=== PATIENT | female | born 1940 ===

== ENCOUNTER 2019-04-27 21:55 | Observation (INO) | payer MEDICARE, BC ==
[~2019-04-27 21:55] MED LIST: Iopamidol-370 76% 500 ML 1 ML ONE
[2019-04-27 22:20] LABS: #Eosinphils 0.2 thou/uL (0.0-0.7); #Lymphocytes 0.9 thou/uL (1.20-3.40); #Monocytes 0.7 thou/uL (0.11-0.59); #Neutrophils 9.2 thou/uL (1.40-6.50); %Basophils 0.3 % (0.0-1.0); %Eosinophils 2.2 % (0.0-10.0); %Lymphocytes 8.1 % (21.0-51.0); %Monocytes 6.4 % (0.0-10.0); %Neutrophils 83.1 % (42.0-75.0); Hemoglobin 11.7 g/dL (12.0-16.0); Mean Corpuscular HGB CONC 34.1 g/dL (32.0-36.0); Mean Corpuscular Hemoglobin 33.7 pg (27.0-31.0); Mean Corpuscular Volume 98.6 fL (78.0-98.0); Mean Platelet Volume 8.3 fL (7.4-10.4); Platelet Count 188 thou/uL (130-400); RBC Distribution Width 10.8 % (11.5-14.5); Red Blood Cell (RBC) Count 3.47 mill/uL (4.20-5.40)
[2019-04-27 22:30] LABS: INR-International Normal Ratio 1.1; Prothrombin Time 13.8 SEC (12.0-14.7)
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
[2019-04-27 22:49] LABS: ALT (SGPT) 24 U/L (8-55); AST (SGOT) 37 U/L (5-34); Albumin 3.5 g/dL (3.4-4.8); Alkaline Phosphatase 84 U/L (40-110); Anion Gap 10 mmol/L (10-20); BUN (Urea Nitrogen) 14 mg/dL (9.8-20.1); Bilirubin, Total 0.3 mg/dL (0.2-1.2); Calc. Creatinine Clearance 0 mL/min (70-130); Calcium 8.3 mg/dL (7.8-10.44); Carbon Dioxide 24 mmol/L (23-31); Chloride 104 mmol/L (98-107); Estimated GFR-MDRD 62; Globulin 2.6 g/dL (2.4-3.5); Glucose 152 mg/dL (83-110); Potassium 3.3 mmol/L (3.5-5.1); Protein, Total 6.1 g/dL (6.0-8.3); Sodium 135 mmol/L (136-145)
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
[2019-04-27] MEDS ORDERED: Lidocaine 1% w/Epinephrine 1:100K 20 ML VIAL ONE (23:36)
[2019-04-28 01:45] LABS: Magnesium 1.8 mg/dL (1.6-2.6)
[2019-04-28 01:48] LABS: Phosphorus 1.4 mg/dL (2.3-4.7)
[2019-04-28] MEDS ORDERED: Dextrose 50% Abboject 50 ML SYRINGE SLOW IVP PRN (01:52)
[2019-04-28] MEDS ORDERED: hydrALAZINE 20 MG/ML VIAL SLOW IVP PRN (01:52)
[2019-04-28] MEDS ORDERED: Dextrose 5% in Water 1,000 ML IV PRN (01:52)
[2019-04-28] MEDS ORDERED: Morphine 2 MG/ML SYRINGE SLOW IVP PRN (01:52)
[2019-04-28] MEDS ORDERED: Ondansetron PF 4 MG/2 ML Vial IVP PRN (01:52)
[2019-04-28] MEDS ORDERED: traMADol HCl 50 MG TAB PO PRN ×2 (01:54)
[2019-04-28] MEDS ORDERED: Magnesium 2 GM/50 ML 2 GM in Premix Bag 1 BAG IVPB SCH (02:00)
[2019-04-28] MEDS ORDERED: Acetaminophen 500 MG TAB ONE (02:05)
[2019-04-28] MEDS ORDERED: Potassium Phosphate 30 MMOL in Sodium Chloride 0.9% 250 ML 250 ML IVPB SCH (02:30)
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
[2019-04-28 03:11] LABS: Troponin I Less than 0.010 ng/mL (< 0.028)
[2019-04-28 04:52] VITALS: BMI 28.5
[2019-04-28] MEDS ORDERED: Acetaminophen 1,000 MG in Premix Bag 1 BAG IVPB SCH (06:00)
[2019-04-28 06:10] LABS: Troponin I Less than 0.010 ng/mL (< 0.028)
[2019-04-28] MEDS: Ibuprofen 600 MG TAB PO SCH ×2 (06:17→13:55)
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
[2019-04-28 08:15] LABS: #Eosinphils 0.1 thou/uL (0.0-0.7); #Lymphocytes 0.9 thou/uL (1.20-3.40); #Monocytes 0.8 thou/uL (0.11-0.59); #Neutrophils 8.3 thou/uL (1.40-6.50); %Basophils 0.3 % (0.0-1.0); %Eosinophils 1.5 % (0.0-10.0); %Lymphocytes 9.2 % (21.0-51.0); %Monocytes 7.4 % (0.0-10.0); %Neutrophils 81.7 % (42.0-75.0); Hemoglobin 9.8 g/dL (12.0-16.0); Mean Corpuscular HGB CONC 33.7 g/dL (32.0-36.0); Mean Corpuscular Hemoglobin 33.8 pg (27.0-31.0); Mean Platelet Volume 8.4 fL (7.4-10.4); Platelet Count 185 thou/uL (130-400); RBC Distribution Width 10.8 % (11.5-14.5); White Blood Cell (WBC) Count 10.2 thou/uL (4.8-10.8)
[2019-04-28 08:37] LABS: Anion Gap 12 mmol/L (10-20); BUN (Urea Nitrogen) 14 mg/dL (9.8-20.1); Calc. Creatinine Clearance 58 mL/min (70-130); Calcium 7.9 mg/dL (7.8-10.44); Carbon Dioxide 21 mmol/L (23-31); Chloride 106 mmol/L (98-107); Estimated GFR-MDRD 60; Glucose 113 mg/dL (83-110); Magnesium 2.4 mg/dL (1.6-2.6); Phosphorus 5.2 mg/dL (2.3-4.7); Potassium 4.2 mmol/L (3.5-5.1); Sodium 135 mmol/L (136-145)
[2019-04-28] MEDS ORDERED: Senokot S 8.6-50 MG TAB PO SCH (09:00)
[2019-04-28] MEDS ORDERED: Famotidine/PF 20 mg/2ml Vial SLOW IVP SCH (09:00)
[2019-04-28] MEDS ORDERED: Polyethylene Glycol 3350 17 GM Packet PO SCH (09:00)
[2019-04-28] MEDS ORDERED: Acetaminophen 500 MG TAB PO SCH (12:00)
[2019-04-28 12:17] VITALS: BP 147/67; TEMP 97.8
--- NOTE | 2019-04-28 13:34 | PDOC.EVN ---
Event Note - Event Note Event Note: Patient seen and examined. No chest pain. Cardiac enzymes negative. No arythmias on telemetry. 12 lead EKG only shows chronic findings. DC home, encouraged IS.
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
== END 2019-04-28 15:58 | disposition home or self-care (01) ==
LOC: ERS 21:55 → 2SW 04-28 04:35
PROVIDERS: ADMIT Specialist; ATTEND Specialist
DX: S01.01XA Laceration without foreign body of scalp, initial encounter (principal); S60.221A Contusion of right hand, initial encounter; R94.31 Abnormal electrocardiogram [ECG] [EKG]; I10 Essential (primary) hypertension; E03.9 Hypothyroidism, unspecified; M19.041 Primary osteoarthritis, right hand; Z79.899 Other long term (current) drug therapy; V49.40XA Driver injured in collision with unspecified motor vehicles in traffic accident, initial encounter
CPT/HCPCS: 12002; 70450; 71045; 71260; 72125; 73130; 74177; 80048; 80053; 83605; 83735; 84100; 84484 ×3; 85025 ×2; 85610; 86850; 86900; 86901; 93005 ×2; 96361; 96374; 96375; 97139 ×3; 97530; 99285; G0378 ×2; 36415; 93010; 96360; G0390; J0131; J3475; J7050; Q9967; S0028